=== PATIENT | male | born 1975 | race Caucasian/White ===

== ENCOUNTER 2017-01-30 19:29 | Emergency (ER) | payer OTHER ==
[~2017-01-30] VITALS: Ht 182.9 cm; Wt 93.2 kg
[2017-01-30] MEDS ORDERED: ZOLO100T PO (19:36)
[2017-01-30] MEDS ORDERED: IBUP-1114 PO (19:36)
[2017-01-30] MEDS ORDERED: IBUP-1022 PO (19:44)
[2017-01-30] MEDS ORDERED: CYCL10TA PO (19:44)
[2017-01-30] MEDS ORDERED: PERC5TAB12 PO (19:44)
[2017-01-30] MEDS ORDERED: PERCOCET 5MG/325MG TAB PO ONE (20:30)
[2017-01-30] MEDS ORDERED: CYCLOBENZAPRINE 10 MG TAB PO ONE (20:30)
[2017-01-30] MEDS ORDERED: IBUPROFEN 600 MG TAB PO ONE (20:30)
[2017-01-30 20:45] VITALS: BP 122/68
--- NOTE | 2017-01-31 07:37 | REP ---
Right rib series and PA chest: Right rib series four views: There is no rib fracture or other rib abnormality. PA chest: There are no comparisons. There is no pneumothorax, hemothorax or pulmonary contusion. Lung rivera are clear. Cardiac size is normal. The jona, mediastinum, and bony thorax unremarkable. Impression: Negative PA chest. Signed by Phillip Avitia MD 01/31/2017 07:28 A
== END 2017-01-30 21:08 | disposition home or self-care (01) ==
LOC: M ED 19:29
DX: S20.211A Contusion of right front wall of thorax, initial encounter (principal); W17.89XA Other fall from one level to another, initial encounter; Y92.830 Public park as the place of occurrence of the external cause; Y93.51 Activity, roller skating (inline) and skateboarding; Y99.8 Other external cause status; Z79.899 Other long term (current) drug therapy